=== PATIENT | female | born 1940 | race Caucasian/White ===

== ENCOUNTER → 2016-04-20 | Outpatient (CLI) | payer OTHER, MEDICARE | LOC: BHFA 14:15 | PROVIDERS: ATTEND Internal Medicine Cardiovascular Disease | DX: I48.91 Unspecified atrial fibrillation (principal) ==

== ENCOUNTER → 2016-08-10 | Outpatient (CLI) | payer OTHER, MEDICARE | LOC: BHFA 10:45 | PROVIDERS: ATTEND Internal Medicine Cardiovascular Disease | DX: I48.91 Unspecified atrial fibrillation (principal); J45.909 Unspecified asthma, uncomplicated ==

== ENCOUNTER → 2016-08-23 | Outpatient (CLI) | payer OTHER, MEDICARE | LOC: BHFA 13:00 | PROVIDERS: ATTEND Internal Medicine Cardiovascular Disease | DX: I42.9 Cardiomyopathy, unspecified (principal); I48.91 Unspecified atrial fibrillation ==

== ENCOUNTER → 2017-07-12 | Outpatient (CLI) | payer OTHER, MEDICARE | LOC: BHFA 15:30 | PROVIDERS: ATTEND Internal Medicine Cardiovascular Disease | DX: I05.9 Rheumatic mitral valve disease, unspecified (principal); I07.9 Rheumatic tricuspid valve disease, unspecified ==

== ENCOUNTER → 2017-08-16 | Outpatient (CLI) | payer OTHER, MEDICARE | LOC: FIMAGING 16:12 | PROVIDERS: ATTEND Internal Medicine Critical Care Medicine | DX: J42 Unspecified chronic bronchitis (principal); I27.29 Other secondary pulmonary hypertension ==

== ENCOUNTER → 2017-10-11 | Outpatient (CLI) | payer OTHER, MEDICARE | LOC: BHFA 13:45 | PROVIDERS: ATTEND Internal Medicine Cardiovascular Disease | DX: I48.1 Persistent atrial fibrillation (principal); I34.0 Nonrheumatic mitral (valve) insufficiency ==

== ENCOUNTER 2018-09-24 12:44 | Day surgery (SDC) | payer OTHER, MEDICARE | END 2018-09-24 15:58 | disposition home or self-care (01) | LOC: FCATH 12:44 ==